=== PATIENT | female | born 2000 | race Caucasian/White ===

== ENCOUNTER → 2024-04-27 | Outpatient (CLI) | payer BC, SELFPAY ==
[2024-04-28 09:42] LABS: BVAG Candida Negative (Negative); Bacterial Vaginosis Markers Positive (Negative); Candida glabrata Negative (Negative); Candida krusei PCR Negative (Negative); Trichomonas Negative (Negative)
== END | disposition home or self-care (01) ==
LOC: SLDO 14:33
PROVIDERS: Referring Provider Specialist; Visit Provider Specialist
DX: B37.89 Other sites of candidiasis (principal); N76.0 Acute vaginitis; A59.01 Trichomonal vulvovaginitis
CPT/HCPCS: 81514

== ENCOUNTER → 2024-09-14 | Outpatient (CLI) | payer BC, SELFPAY ==
[2024-09-15 11:20] LABS: BVAG Candida Negative (Negative); Bacterial Vaginosis Markers Positive (Negative); Candida glabrata Negative (Negative); Candida krusei PCR Negative (Negative); Trichomonas Negative (Negative)
== END | disposition home or self-care (01) ==
LOC: SLDO 14:04
PROVIDERS: Referring Provider Physician Assistant Medical; Visit Provider Physician Assistant Medical
DX: B37.89 Other sites of candidiasis (principal); N76.0 Acute vaginitis; A59.01 Trichomonal vulvovaginitis
CPT/HCPCS: 81514

== ENCOUNTER → 2024-10-05 | Outpatient (CLI) | payer BC, SELFPAY ==
[2024-10-05 13:07] LABS: Misc Send Out* See Sep Rpt
[2024-10-05 13:36] LABS: Basophils # (Auto) 0.0 Thou/mm3 (0.0-0.2); Basophils % (Auto) 0 % (0-2.5); Eosinophils # (Auto) 0.2 Thou/mm3 (0.0-0.5); Eosinophils % (Auto) 2 % (0-10); Hematocrit 32.8 % (36.0-46.0); Hemoglobin 11.0 g/dL (12.0-16.0); Immature Granulocytes Auto 0.04 Thou/mm3 (0.00-0.00); Lymphocytes # (Auto) 2.3 Thou/mm3 (1.0-4.8); Lymphocytes % (Auto) 23 % (10-50); Mean Corpuscular HGB Conc 33.5 g/dl (31.0-37.0); Mean Corpuscular Hemoglobin 29.9 pg (25.0-35.0); Mean Corpuscular Volume 89 fL (80-100); Monocytes # (Auto) 0.5 Thou/mm3 (0.0-0.8); Monocytes % (Auto) 5 % (0-12); Neutrophils # (Auto) 7.1 Thou/mm3 (1.8-7.7); Neutrophils % (Auto) 70 % (37-80); Nucleated Red Blood Cell # 0.00 Thou/mm3 (0.00-0.00); Nucleated Red Blood Cell % 0 /100 WBC (0); Platelet Count 327 Thou/mm3 (140-440); RDW Standard Deviation 41.3 fL (36.4-46.3); Red Blood Count 3.68 Miln/mm3 (4.00-5.20); White Blood Count 10.1 Thou/mm3 (3.6-11.0)
[2024-10-05 13:47] LABS: Glucose Estimated Average 103 mg/dL (80-131); Hemoglobin A1C 5.2 % Hgb (4.8-6.0)
[2024-10-05 14:01] LABS: Creatinine (Component) 0.7 mg/dL (0.6-1.3); Glucose 92 mg/dL (74-106); eGFR > 60 See Note
[2024-10-05 14:18] LABS: Hepatitis B Surface Antigen Non Reactive (Non React); Rubella, IgG Antibody NonReact(Not Immune)
[2024-10-05 14:21] LABS: Syphilis Nonreactive (Nonreactive)
[2024-10-05 14:25] LABS: Beta HCG,Quantitative 54776 mIU/mL (<5.0)
[2024-10-05 15:09] LABS: HIV (1&2) Antibody Rapid Non-Reactive
[2024-10-09 19:49] LABS: HCV RNA, PCR <15 NOT DETECTED IU/mL
[2024-10-11 06:53] LABS: HCV RNA, PCR Log IU <1.18 NOT DETECTED Log IU/mL; HIV Ag/Ab, 4th Gen NON-REACTIVE
== END | disposition home or self-care (01) ==
LOC: COPL 12:39
PROVIDERS: Referring Provider Physician Assistant Medical; Visit Provider Physician Assistant Medical
DX: Z34.81 Encounter for supervision of other normal pregnancy, first trimester (principal)
CPT/HCPCS: 36415; 81220; 82565; 82947; 83036; 84702; 85025; 86703; 86762; 86780; 86850; 86900; 86901; 87340; 87389; 87522

== ENCOUNTER → 2024-10-05 | Outpatient (CLI) | payer BC, SELFPAY ==
[2024-10-05 14:58] LABS: Collection Type, Urine Clean Catch
[2024-10-05 16:06] LABS: Bacteria,Urine 2+; Bilirubin,Urine Negative (Negative); Blood,Urine Negative (Negative); Color,Urine Lt-Yellow (Lt Yel-Yel); Glucose, Urine Negative (Negative); Ketones,Urine Negative (Negative); Leukocyte Esterase,Urine Negative (Negative); Nitrite,Urine Negative (Negative); PH,Urine 7.5 (5.0-7.0); Protein,Urine Negative (Neg - Trace); RBC,Urine 1 /hpf (0-3); Specific Gravity,Urine 1.011 (1.001-1.035); Squamous Epithelial Cell,Urine 14 /hpf (0-5); Urobilinogen,Urine Negative mg/dL (0.0-1.0); WBC,Urine 1 /hpf (0-5)
[2024-10-05 16:07] LABS: Clarity,Urine Hazy (Clear/Hazy)
[2024-10-05 16:24] LABS: Amphetamine/Methamp Scrn,U Negative (Negative); Barbiturate Screen,Urine Negative (Negative); Benzodiazepines Screen,Urine Negative (Negative); Benzoylecgonine Screen, Ur Positive (Negative); Fentanyl Screen,Urine Negative (Negative); Opiate Screen,Urine Negative (Negative); THC Screen,Urine Negative (Negative)
== END | disposition home or self-care (01) ==
LOC: SLDO 14:49
PROVIDERS: Referring Provider Specialist; Visit Provider Specialist
DX: Z34.81 Encounter for supervision of other normal pregnancy, first trimester (principal)
CPT/HCPCS: 80307; 81001; 87086

== ENCOUNTER → 2024-10-06 | Outpatient (CLI) | payer BC, SELFPAY ==
[2024-10-06 11:32] LABS: Quantiferon-TB* See Sep Rpt
== END | disposition home or self-care (01) ==
LOC: COPL 11:14
PROVIDERS: PCP Internal Medicine; Referring Provider Physician Assistant Medical; Visit Provider Physician Assistant Medical
DX: Z34.81 Encounter for supervision of other normal pregnancy, first trimester (principal)
CPT/HCPCS: 86480

== ENCOUNTER → 2024-11-03 | Outpatient (CLI) | payer BC, SELFPAY ==
[2024-11-03 21:05] LABS: Amphetamine/Methamp Scrn,U Negative (Negative); Barbiturate Screen,Urine Negative (Negative); Benzodiazepines Screen,Urine Negative (Negative); Benzoylecgonine Screen, Ur Positive (Negative); Fentanyl Screen,Urine Negative (Negative); Opiate Screen,Urine Negative (Negative); THC Screen,Urine Negative (Negative)
== END | disposition home or self-care (01) ==
LOC: SLDO 15:53
PROVIDERS: Referring Provider Physician Assistant Medical; Visit Provider Physician Assistant Medical
DX: F14.10 Cocaine abuse, uncomplicated (principal)
CPT/HCPCS: 80307

== ENCOUNTER → 2024-11-12 | Outpatient (CLI) | payer BC, SELFPAY ==
[2024-11-12 17:50] LABS: Amphetamine/Methamp Scrn,U Negative (Negative); Barbiturate Screen,Urine Negative (Negative); Benzodiazepines Screen,Urine Negative (Negative); Benzoylecgonine Screen, Ur Positive (Negative); Fentanyl Screen,Urine Negative (Negative); Opiate Screen,Urine Negative (Negative); THC Screen,Urine Negative (Negative)
== END | disposition home or self-care (01) ==
LOC: SLDO 15:11
PROVIDERS: PCP Physician Assistant Medical; Referring Provider Specialist; Visit Provider Specialist
DX: Z34.81 Encounter for supervision of other normal pregnancy, first trimester (principal)
CPT/HCPCS: 80307

== ENCOUNTER 2025-03-11 15:03 | Outpatient (AMB) | payer BC, MEDICAID, SELFPAY ==
[2025-03-11 15:25] VITALS: BP 128/85; PULSE 84; RESP 18; TEMP 36.8; O2SAT 97; BMI 28.2
--- NOTE | 2025-03-11 15:25 | AMB.OBPNC ---
Vital Signs 03/11/25 15:25 Height 1.57 m Height Method Stated Weight 69.967 kg Weight Measurement Method Standing Scale BMI 28.2 BP 128/85 H Blood Pressure Source Automatic Cuff Blood Pressure Location Right Upper Arm Position Sitting Respiration 18 Pulse 84 Pulse Source Monitor Temp 98.2 F Temp Source Temporal Artery Scan Pulse Oximetry (%) 97 Oxygen Delivery Method Room Air Allergies/Home Meds Allergies & Medications Allergies No Known Allergies Allergy (Verified 03/11/25 15:26) Medication Reconciliation No Known Home Medications 07/13/21 [History Confirmed 03/11/25] Immunizations Immunizations Flu Vaccine in the Last 12 Months: No Flu Vaccine Exclusion Criteria: No Exclusion Criteria
--- NOTE | 2025-03-11 15:27 | OBCLNT_ITS ---
Vital Signs 03/11/25 15:25 03/11/25 15:30 Height 1.57 m Height Method Stated Weight 69.967 kg Weight Measurement Method Standing Scale BMI 28.2 BP 128/85 H 128/85 H Blood Pressure Source Automatic Cuff Blood Pressure Location Right Upper Arm Position Sitting Respiration 18 18 Pulse 84 84 Pulse Source Monitor Temp 98.2 F 98.2 F Temp Source Temporal Artery Scan Pulse Oximetry (%) 97 97 Oxygen Delivery Method Room Air Allergies/Home Meds Allergies & Medications Allergies No Known Allergies Allergy (Verified 03/11/25 15:26) Medication Reconciliation No Known Home Medications 07/13/21 [History Confirmed 03/11/25] Intake Visit Data Collection New Patient or Established: Established Patient (seen at [facility] within 3 years) Reason for Visit:: OB TRANSFER Seen by Clinical Staff ONLY (RN/MA): No Renewable Energy Project Manager Required: No Do You Feel Safe at Home: Yes Authorities Contacted: N/A PCP or OBGYN visit in last 3 months: No Hx Now: Yes Are you currently on any form of Control: No Last menstrual period: 05/29/24 Pain Present Currently: No Pain Scale Used: Young-Bundy/Numerical Pain scale:: 0 Smoking Status Smoking Status: Never smoker Immunizations Flu Vaccine in the Last 12 Months: No Flu Vaccine Exclusion Criteria: No Exclusion Criteria and Already Received Questionnaires Covid-19 Vaccine Questionnaire Has patient been vacinated for Covid-19 Have you been vacinated for Covid-19: No PHQ-9 PHQ-2 Over the last 2 weeks, how often have you been bothered by any of the following problems? 1. Little interest or pleasure in doing things: not at all 2. Feeling down, depressed, or hopeless: not at all Total score: 0 PHQ-9 3. Trouble falling or staying asleep, or sleeping too much: Not at all 4. Feeling tired or having little energy: Not at all 5. Poor appetite or overeating: Not at all 6. Feeling bad about yourself - or that you are a failure or have let yourself or your family down: Not at all 7. Trouble concentrating on things, such as reading the newspaper or watching television: Not at all 8. Moving or speaking so slowly that other people could have noticed? - Or the opposite - being so fidgety or restless that you have been moving around a lot more than usual: not at all 9. Thoughts that you would be better off or of hurting yourself in some way: Not at all Total score: 0 If you checked off any problems, how difficult have these problems made it for you to do your work, take care of things at home, or get along with other people?: not difficult at all Source: Developed by Drs. Frankie Ramirez, Angelica Love, Chris Palomino and colleagues, with an educational cristino from [employer]. Depression screen completed yes Social History Living Situation History Marital Status: Single Lives With: Family Housing: House Tobacco History Smoking Status: Never smoker Second Hand Smoke Exposure: No Alcohol History Alcohol Intake: Never Domestic Abuse History Do You Feel Safe at Home: Yes History of Present Illness HPI Narrative 24-year-old 1 para 0 for OBI. Patient is a transfer of care from Dr Anderson's office. Limited records. Patient reports last period May 29, 2024. This would give an EDC of March 05, 2025. Patient's first ultrasound was September 22, 2024. She measured 13 weeks 5 and this changed to EDC to March 25, 2025. Patient's anatomy scan showed normal growth and no abnormalities. Confirm dates. Patient had her gallbladder removed and she does not remember when. She has a history of positive cocaine use. Her last use she reports was in September. Patient also has a history of using marijuana. Patient reports that a month ago she received a letter from Dr Anderson excusing her from his care because of a positive drug screen. And patient denies any existence of chronic illness. Patient is here with her mother today. She reports movement. Denies leaking, bleeding, contractions. She has a history of abnormal Pap that was ASCUS with HPV negative. And she needs a repeat Pap in April. Patient is O+, antibody screen negative, RPR was nonreactive, rubella nonimmune, GC and chlamydia were not recorded in the chart. Hepatitis B was negative. Her HIV was negative. Hep C was also negative. She had a A1c of 5.2 and random glucose 103 and GTT was not done. Cystic fibrosis screen was negative. Patient declined NIPT and AFP. She states she declined both of those because she thought that those tests were done by amniocentesis. Both patient and mother are happy about the [employer]: Past Medical History Past Medical History: No Hx Neurological Disorders, No Hx Cardiac Disorders, No Hx Blood Disorders, No Hx Renal Disease, No Hx Diabetes Mellitus Type 1 and No Hx Diabetes Mellitus Type 2 OB Initial Visit OB Flowsheet OB Flowsheet Initial Weight: Not Recorded Date -?-?-?-?-?-?-?-?-?-?-?-?- EGA Weight BP Alb Glu CTX Pres Fundal ht FHR Mov Dilation Station Effacement Hx Notes Visit Note 03/11/25 -?-?-?-?-?-?-?-?-?-?-?-?- 38w 0d 69.967 kg 128/85 128/85 absent cephalic 34 145 active 24-year-old 1 para 0 for OBI. Transfer from Dr Anderson with partial records. Patient reports that she has not had any problems with the . Reports good movement. Denies leaking, bleeding, contractions. She had her first ultrasound at 13 weeks in September. And this gave EDC of March 25, 2025. She has irregular menses and unsure dates. Patient was terminated from Dr Anderson's care because of a positive drug screen for weed and cocaine OBI today. Patient sent to labor and delivery for complete OB and NST BPP for measuring size less than dates. I did A1c they are at [facility] and also sent urine for GC and chlamydia. GBS was done today. Menstrual History Menstrual reliability: unknown Flow: heavy Menstrual regularity: irregular Monthly: No Age at menarche: 13 On control pills at conception: Yes OB History : 2 Hx Total # of Abortions (Spontaneous & Elective): 1 Infection History & Risk Evaluation History of STDs: none Patient or partner has history of Genital Herpes: No Genetic Screening & History Genetic Screening/Teratology Counseling - Includes patient, baby's father, or anyone in either family with: 1. Patient's age 35 years or older as of estimated date of delivery: No 2. Thalassemia (Hong Konger, Sami, Mediterranean, or Background); MCV less than 80: No 3. Neural Tube Defect (Meningomyelocele, Spina Bifida, or Anencephaly): No 4. Congenital Heart Defect: No 5. Down Syndrome: No 6. Dick-Sachs (Ashkenazi Mu-Ism, Cajun, Northern Irish Ethiopian): No 7. [place] Disease (Ashkenazi Mu-Ism): No 8. Familial Dysautonomia (Ashkenazi Mu-Ism): No 9. Sickle Cell Disease or Trait (): No 10. Hemophilia or other blood disorders: No 11. Muscular Dystrophy: No 12. Cystic Fibrosis: No 13. Coleman's Chorea: No 14. Mental Retardation/Autism: No 15. Other inherited genetic or chromosomal disorder: No 16. Maternal Metabolic Disorder (EG,TYPE 1 Diabetes, PKU): No 17. Patient or baby's father had a child with defects not listed above: No 18. Recurrent loss or a stillbirth: No 19. Medications (including supplements, vitamins, herbs or otc drugs)/illicit/recreational drugs/alcohol since last menstrual period: No 20. Any other: No Infection History Other (see comments) Source: [employer] Review of Systems Review of Systems Systems Reviewed: All systems reviewed, normal except as documented Exam General Limitations: no limitations General Appearance: alert, in no apparent distress, comfortable, cooperative, healthy appearing, well developed and well groomed ENT ENT exam: Present normal exam, normal oropharynx and mucous membranes moist Neck Neck exam: Present normal inspection, full ROM and trachea midline Chest Chest inspection: Present normal inspection and symmetric chest wall rise Resp Respiratory exam: Present normal lung sounds bilaterally Card Cardiovascular exam: Present regular rate, normal rhythm and normal heart sounds Abdominal Abdominal exam: Present soft and normal bowel sounds Psych Psychiatric exam: Present normal affect and normal mood Office Procedures OBC Clinic LOC & Office Proc's Nursing/Assessment Patient Status: Established Patient OB Clinic Nursing Assessment: Medication Reconciliation, Update PMH in EMR and Vital Signs OB Clinic Coordination of Care: Complex Care and Chronic Disease 1-5, Education Complex Pt/Fam, Consent,records obtained, informed consent, Lab and Imaging orders, Results/Orders obtained and Staff clarify orders Special Needs: Heart tones Established Patient Charge Established Patient Point Assignment: 140 Established Patient Point Charge: EP Level 4 (120-155) Assessment & Plan Diagnosis / Problem List (1) Encounter for supervision of high risk in third trimester, antepartum: Status: Acute Plan Patient sent to labor and delivery for complete OB sono and NST BPP. I also did hemoglobin A1c and GC and chlamydia. Discussed labor precautions. Kick count twice a day. GBS was done today. Return in a week recheck Additional Plan Follow Up: 1 Week (obc)
[2025-03-11 15:30] VITALS: BP 128/85; PULSE 84; RESP 18; TEMP 36.8; O2SAT 97
== END 2025-03-11 16:06 | disposition home or self-care (01) ==
LOC: HODSOBC 15:03
PROVIDERS: PCP Physician Assistant Medical; Referring Provider Physician Assistant Medical; Supervising Provider Advanced Practice Midwife; Visit Provider Advanced Practice Midwife
DX: O09.93 Supervision of high risk pregnancy, unspecified, third trimester (principal); Z3A.38 38 weeks gestation of pregnancy; Z36.85 Encounter for antenatal screening for Streptococcus B
CPT/HCPCS: 99214; G0463

== ENCOUNTER 2025-03-13 09:32 | Inpatient (IN) | payer BC, MEDICAID, SELFPAY ==
[2025-03-12] VITALS (36 sets, daily range): BP systolic 113–135; BP diastolic 73–93; PULSE 70–103; RESP 15–100; TEMP 36.7–37.1; O2SAT 91–100; BMI 27.4; BMI 30.8
--- NOTE | 2025-03-12 14:51 | XR_ITS ---
Examination: Complete OB ultrasound greater than 14 weeks Date and time of exam: March 12, 2025, 1554 hours INDICATIONS: Unknown size and dates, Limited care Findings: Viable intrauterine single fetus with single amniotic sac presentation cephalic Cardiac motion 132 bpm Placenta posterior grade 2 Umbilical cord insertion seen Amniotic fluid index 9.1 cm Cervix 3.1 cm Ovaries obscured by bowel gas. Composite estimated gestational age based on BPD, head circumference, abdominal circumference, femur length is 33 weeks 2 days Estimated weight 2157 g. Survey of intracranial anatomy, spinal anatomy, abdominal anatomy, four-chamber heart performed with no abnormalities identified. Impression: Viable intrauterine gestation cephalic presentation.
--- NOTE | 2025-03-12 14:51 | XR_ITS ---
Examination: Biophysical profile, ultrasound Date and time of exam: March 12, 2025, 1546 hours INDICATIONS: Limited care Technique: Multiple transabdominal sonographic images of the pelvis abdomen obtained. Attention is directed to the breathing movement, gross body movement, amniotic fluid volume and tone. Findings: Amniotic fluid index 8.1 cm Total biophysical profile is 8 of 8. breathing movement is 2. Gross body movement is 2. tone is 2. Qualitative amniotic fluid volume is 2 Impression: Biophysical profile is 8 of 8.
[2025-03-12 18:59] LABS: Amphetamine/Metham Scrn,Ur OB Negative (Negative); Benzoylecgonine Screen, Ur OB Positive (Negative); Benzoylecoginine U Confirm* See Sep Rpt; Opiate Screen,Urine OB Negative (Negative); THC Screen,Urine OB Negative (Negative)
[2025-03-12 19:03] LABS: Basophils # (Auto) 0.0 Thou/mm3 (0.0-0.2); Basophils % (Auto) 0 % (0-2.5); Eosinophils # (Auto) 0.1 Thou/mm3 (0.0-0.5); Eosinophils % (Auto) 1 % (0-10); Hematocrit 31.9 % (36.0-46.0); Hemoglobin 10.4 g/dL (12.0-16.0); Immature Granulocytes Auto 0.04 Thou/mm3 (0.00-0.00); Lymphocytes # (Auto) 1.8 Thou/mm3 (1.0-4.8); Lymphocytes % (Auto) 18 % (10-50); Mean Corpuscular HGB Conc 32.6 g/dl (31.0-37.0); Mean Corpuscular Hemoglobin 30.5 pg (25.0-35.0); Mean Corpuscular Volume 94 fL (80-100); Monocytes # (Auto) 0.5 Thou/mm3 (0.0-0.8); Monocytes % (Auto) 6 % (0-12); Neutrophils # (Auto) 7.5 Thou/mm3 (1.8-7.7); Neutrophils % (Auto) 75 % (37-80); Nucleated Red Blood Cell # 0.00 Thou/mm3 (0.00-0.00); Nucleated Red Blood Cell % 0 /100 WBC (0); Platelet Count 288 Thou/mm3 (140-440); RDW Standard Deviation 45.5 fL (36.4-46.3); Red Blood Count 3.41 Miln/mm3 (4.00-5.20); White Blood Count 9.9 Thou/mm3 (3.6-11.0)
[2025-03-12] MEDS: RINGERS LACTATED 1000 ML 1,000 ML 100 ML IV (19:35)
[2025-03-12 19:40] LABS: Syphilis Nonreactive (Nonreactive)
--- NOTE | 2025-03-12 23:17 | ESHP_ITS ---
Documentation for date of: 03/12/25 OB Labor/Induct. HPI History of Present Illness Chief complaint: Induction of labor for suspected SGA infant : 2 Para: 0 Term pregnancies: 0 pregnancies: 0 Living children: 0 History of Abortions: Spontaneous and Elective: 1 History of Vaginal deliveries: 0 History of sections: No History of : No Date of last menstrual period: 05/29/24 ROBERT: 03/25/25 Gestational Age (weeks): 38 Gestational Age (days): 1 Gestational age based on last menstrual period: 41 Indication for induction: other (Suspected SGA baby. Baby is measuring) History of present illness: Patient is a 24-year-old -0-1-0 with at 38 and 1 sevenths weeks all care started with Dr Anderson transferred to Violetta Hernandez at [facility] clinic with a lagging fundal height. The patient had an ultrasound today revealing a vertex presentation and baby measuring 2157 g which corresponds to 4 pounds 7 ounces and approximately 33 weeks gestation .As the patient is 38 weeks , she was admitted for induction of labor for suspected SGA. The MANJIT was normal. Of note the patient has a history of multiple drug screens positive cocaine this . Her UDS is positive on admission for cocaine. labs are up-to-date. Patient declined AFP and NIPT testing. History of Present Dating criteria: LMP confirmed by 1st trimester US Adequate Care: Yes Ultrasounds: normal mid trimester US Obstetrical complications: other (Small for gestational age infant) Medical complications: other (Exposure to cocaine use this ) Labs Maternal Blood Type: O Pos Labs: Negative: RPR, Hepatitis B, Rubella Titre and HIV and Unknown: Chlamydia, Gonorrhea, Herpes Type 1, Herpes Type 2, Group Beta Strep (Unknown group B strep. Will treat with clindamycin as patient is allergic to penicillin.) and Covid-19 Past Medical History Surgical History SURGICAL: Negative Section Past Medical History Comments PMH COMMENT: Patient denies significant past medical history. She has had a gallbladder removal. Meds Home Medications and Allergies Home Medications ?Medication ?Instructions ?Recorded ?Confirmed ?Type No Known Home Medications 07/13/2102/15 History Allergies Allergy/AdvReac Type Severity Reaction Status Date / Time bee venom protein (honey bee) Allergy Hives Verified 03/12/25 18:14 Penicillins Allergy Hives Verified 03/12/25 18:14 OB Exam Physical Exam Vital signs: Temp Pulse Resp BP Pulse Ox O2 Del Method 98.1 F 70 15 120/85 H 97 Room Air 03/12/25 21:47 03/12/25 23:14 03/12/25 21:47 03/12/25 23:14 03/12/25 18:23 03/12/25 21:47 Routine Abdominal Exam Abdominal: Present soft Detailed Labor and Delivery Exam Dilation (cm): 2 Effacement (%): 80 Cervix position: mid station: -2 Consistency: medium Presentation: Vertex Membranes: intact monitor accelerations: 15x15 monitor decelerations: None buttermaker helper variability: Moderate (11-25) Contraction frequency (min): Irregular on presentation Tachysystole: No Contraction intensity: Mild OB Results Labs 03/12/25 17:55 Labs: Short CBC 03/12/25 Range/Units 17:55 WBC 9.9 (3.6-11.0) Thou/mm3 Hgb 10.4 L (12.0-16.0) g/dL Hct 31.9 L (36.0-46.0) % Plt Count 288 (140-440) Thou/mm3 OB Assessment & Plan Assessment and Plan (1) Supervision of high risk in third trimester: Status: Acute (2) SGA (small for gestational age), , affecting care of mother, antepartum: Status: Acute Assessment and plan: Admit patient for induction of labor for suspected SGA. (3) Cocaine abuse affecting in third trimester: Status: Acute Assessment and plan: Social work consult Additional Plan Induction method: per misoprostol protocol Plan: induction, anticipate NVD and GBS prophylaxis tx (2) SGA (small for gestational age), , affecting care of mother, antepartum Qualifiers: Fetus number: single or unspecified fetus Qualified Code(s): O36.5990 - Maternal care for other known or suspected poor growth, unspecified trimester, not applicable or unspecified
[2025-03-13] VITALS (148 sets, daily range): BP systolic 96–186; BP diastolic 57–101; PULSE 64–119; RESP 15–20; TEMP 36.6–37.4; O2SAT 68–100
[2025-03-13] MEDS: RINGERS LACTATED 1000 ML 1,000 ML 100 ML IV ×2 (01:56→02:51)
--- NOTE | 2025-03-13 06:04 | PD.LDPN ---
Documentation for date of: 03/13/25 OB Labor Progress Note Pain Control Pain control: epidural Pelvic Exam Dilation (cm): 4-5 Effacement (%): 80 station: -2 Amniotic membrane status: Ruptured (AROM 0546 clear fluid) Contractions Monitor mode: Internal Contraction frequency: 4 min Contraction intensity: Moderate Status status: Category l Assessment and Plan Assessment: induction ongoing Plan OB labor note: begin Pitocin augmentation History of Present Illness HPI Patient is a 24-year-old -0-1-0 with at 38 and 1 sevenths weeks all care started with Dr Anderson transferred to Violetta Hernandez at [facility] OB clinic with a lagging fundal height. The patient had an ultrasound today revealing a vertex presentation and baby measuring 2157 g which corresponds to 4 pounds 7 ounces and approximately 33 weeks gestation .As the patient is 38 weeks , she was admitted for induction of labor for suspected SGA. The MANJIT was normal. Of note the patient has a history of multiple drug screens positive cocaine this . Her UDS is positive on admission for cocaine. labs are up-to-date. Patient declined AFP and NIPT testing. Overnight the patient had epidural placed. Her UCs spaced. At 0546, I examined the patient and AROMed her. Clear fluid. IUPC placed. Cx 4-5/90/-2/mid Will start pitocin augmentation at this time.
[2025-03-13 08:26] LABS: Chlamydia trachomatis PCR Negative (Not Detect); Neisseria Gonorrhoeae DNA PCR Negative (Not Detect); Trichomonas Negative (Negative)
[2025-03-13] MEDS: MINERAL OIL 30 ML UDC TOP (09:46)
[2025-03-13] MEDS: OXYTOCIN in NS 20 units 20 UNIT/1,000 ML BAG 125 UNIT IV (09:46)
[2025-03-13] MEDS: BENZO/LANO/ALOE (Dermoplast) 60 GM CAN 1 SPRAY TOP (09:47)
[2025-03-13] MEDS: IBUPROFEN TAB 400 MG TABLET 800 MG PO (09:47)
--- NOTE | 2025-03-13 09:57 | OBDSUM_ITS ---
Data (Madrigal) Data Hx Section: No Maternal Blood Type: O Pos Labs: Negative: RPR, Hepatitis B, HIV, Chlamydia and Gonorrhea and Unknown: Group Beta Strep : 2 Term: 0 : 0 Livin Abortions: Spontaneous & Theraputic: 1 Delivery Data (Madrigal) Labor Data Initiation of labor: Augmentation Induction/Augmentation Agent: Artificial ROM ROM date: 03/13/25 ROM time: 05:46 Amniotic membrane rupture type: Artificial Amniotic fluid description: Clear Delivery Data EDC: 03/25/25 Onset of labor date: 03/13/25 Onset of labor time: 03:00 Complete dilation date: 03/13/25 Complete dilation time: 08:45 Ripley delivery date: 03/13/25 Ripley delivery time: 09:24 Gestational age (weeks): 38 Gestational age (days): 2 Placenta delivery date: 03/13/25 Placenta delivery time: 09:27 Stage 1 total time: Labor - Stage 1 Duration 5 hours and 45 minutes Delivered by: Nisha Oneill Delivery nurse: MIZRA Choorn nurse: MIRZA Barker Bus Transportation Manager at delivery: Yes (Donsar) Support person(s) at delivery: Mother, and FOB Other staff at delivery: Ruthie, motorboat mechanic inboard Stephanie, RN Sayar, DIESEL POWER SHOVEL OPERATOR Delivery Method Delivery method: Normal Vaginal Delivery Presentation: Vertex Anesthesia Type Anesthesia Type: Epidural Placenta Placenta delivery description: Spontaneous Cord blood sent to lab: Yes cord blood collection: Cord Blood Type Episiotomy Episiotomy description: None EBL Estimated blood loss (ml): 160 Umbilical Cord cord description: 3 Vessels Ripley Data (Madrigal) Ripley Data order: 1 Ripley's gender: Male Identification band number: [id number] weight (gms): 2840 g Weight (pounds): 6 lbs and 4.2 ozs length: 48 cm 1 minute: 9 5 minutes: 9
[2025-03-13 11:51] LABS: Basophils # (Auto) 0.0 Thou/mm3 (0.0-0.2); Basophils % (Auto) 0 % (0-2.5); Eosinophils # (Auto) 0.0 Thou/mm3 (0.0-0.5); Eosinophils % (Auto) 0 % (0-10); Hematocrit 26.9 % (36.0-46.0); Immature Granulocytes Auto 0.12 Thou/mm3 (0.00-0.00); Lymphocytes # (Auto) 1.5 Thou/mm3 (1.0-4.8); Lymphocytes % (Auto) 8 % (10-50); Mean Corpuscular HGB Conc 32.7 g/dl (31.0-37.0); Mean Corpuscular Hemoglobin 31.0 pg (25.0-35.0); Mean Corpuscular Volume 95 fL (80-100); Monocytes # (Auto) 1.1 Thou/mm3 (0.0-0.8); Monocytes % (Auto) 6 % (0-12); Neutrophils # (Auto) 15.1 Thou/mm3 (1.8-7.7); Neutrophils % (Auto) 84 % (37-80); Nucleated Red Blood Cell # 0.00 Thou/mm3 (0.00-0.00); Nucleated Red Blood Cell % 0 /100 WBC (0); Platelet Count 192 Thou/mm3 (140-440); RDW Standard Deviation 46.0 fL (36.4-46.3); Red Blood Count 2.84 Miln/mm3 (4.00-5.20); White Blood Count 17.8 Thou/mm3 (3.6-11.0)
[2025-03-13 12:33] LABS: Hemoglobin 8.8 g/dL (12.0-16.0)
[2025-03-13] MEDS: ACETAMINOPHEN 325 MG TABLET 650 MG PO (12:56)
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
[2025-03-13] MEDS: DIPHTH,PERTUSS(ACELL),TET VAC 0.5 ML SYR- ADULT IMi (17:48)
[2025-03-14 00:08] VITALS: BP 121/84; PULSE 88; RESP 18; TEMP 36.7; O2SAT 98
[2025-03-14 04:06] VITALS: BP 121/75; PULSE 88; RESP 15; TEMP 36.8; O2SAT 97
[2025-03-14 06:03] LABS: Basophils # (Auto) 0.0 Thou/mm3 (0.0-0.2); Basophils % (Auto) 0 % (0-2.5); Eosinophils # (Auto) 0.1 Thou/mm3 (0.0-0.5); Eosinophils % (Auto) 1 % (0-10); Hematocrit 27.2 % (36.0-46.0); Hemoglobin 8.9 g/dL (12.0-16.0); Immature Granulocytes Auto 0.06 Thou/mm3 (0.00-0.00); Lymphocytes # (Auto) 2.4 Thou/mm3 (1.0-4.8); Lymphocytes % (Auto) 19 % (10-50); Mean Corpuscular HGB Conc 32.7 g/dl (31.0-37.0); Mean Corpuscular Hemoglobin 30.8 pg (25.0-35.0); Mean Corpuscular Volume 94 fL (80-100); Monocytes # (Auto) 0.9 Thou/mm3 (0.0-0.8); Monocytes % (Auto) 7 % (0-12); Neutrophils # (Auto) 9.2 Thou/mm3 (1.8-7.7); Neutrophils % (Auto) 72 % (37-80); Nucleated Red Blood Cell # 0.00 Thou/mm3 (0.00-0.00); Nucleated Red Blood Cell % 0 /100 WBC (0); Platelet Count 188 Thou/mm3 (140-440); RDW Standard Deviation 45.5 fL (36.4-46.3); Red Blood Count 2.89 Miln/mm3 (4.00-5.20); White Blood Count 12.7 Thou/mm3 (3.6-11.0)
[2025-03-14] MEDS: IBUPROFEN TAB 400 MG TABLET 800 MG PO ×2 (07:11→20:11)
[2025-03-14 07:17] VITALS: BP 124/83; PULSE 65; RESP 16; TEMP 36.8; O2SAT 97
--- NOTE | 2025-03-14 09:14 | PD.LDPPPRG ---
Subjective Subjective Interval history: The patient is a 24-year-old -0-1-1 day #1 status post vaginal delivery 03/13/[address] Oneill at approximately 9:30 in the morning. This morning the patient is resting comfortably in bed. She denies heavy bleeding. Her pain is controlled with p.o. pain medications. She is unsure whether she is going to breast or bottle feed. Of note patient's drug screen was positive for cocaine. Her baby's drug screen was also positive for cocaine. We are awaiting a social work consult. Patient is ambulating voiding tolerating a general diet. She stated she had only a minor laceration repair at delivery. Exam Vital Signs Temp Pulse Resp BP Pulse Ox O2 Del Method 98.3 F 65 16 124/83 97 Room Air 03/14/25 07:17 03/14/25 07:17 03/14/25 07:17 03/14/25 07:17 03/14/25 07:17 03/14/25 07:17 Narrative Exam Patient is alert and orient x 3 no apparent distress Fundus is firm nontender at umbilicus Extremities show no significant edema or erythema. Objective Labs 03/14/25 05:46 Labs: Laboratory Results - last 24 hr 03/13/25 03/14/25 11:21 05:46 WBC 17.8 H D 12.7 H D RBC 2.84 L 2.89 L Hgb 8.8 L 8.9 L Hct 26.9 L 27.2 L MCV 95 94 MCH 31.0 30.8 MCHC 32.7 32.7 RDW Std Deviation 46.0 45.5 Plt Count 192 D 188 Neut % (Auto) 84 H 72 Lymph % (Auto) 8 L 19 [place] % (Auto) 6 7 Eos % (Auto) 0 1 Baso % (Auto) 0 0 Neut # (Auto) 15.1 H 9.2 H Lymph # (Auto) 1.5 2.4 [place] # (Auto) 1.1 H 0.9 H Eos # (Auto) 0.0 0.1 Baso # (Auto) 0.0 0.0 Immature Gran # (Auto) 0.12 H 0.06 H Absolute Nucleated RBC 0.00 0.00 Immature Gran % 1 H 1 H Nucleated RBC % 0 0 Assessment & Plan Problem List (1) SGA (small for gestational age), , affecting care of mother, antepartum: Status: Acute (2) Cocaine abuse affecting in third trimester: Problem details: Patient's drug screen was positive for cocaine as was the 's. Awaiting social work consult and recommendations. Status: Acute (3) care following vaginal delivery: Problem details: Patient is doing well . Her predelivery hemoglobin postdelivery hemoglobin are stable. She is afebrile and her other vital signs are stable. Status: Acute Time Spent With Patient Time: Total time spent is greater than 50% in coordination of care (as documented) at patient's floor/unit and/or counseling patient: Time with patient: less than 15 minutes
--- NOTE | 2025-03-14 11:12 | PC.SS ---
SMELLER informed by bedside nurse that CWS staff at bedside with patient. Bedside nurse to notify SMELLER once CWS determines outcome of response.
[2025-03-14 12:04] VITALS: BP 130/80; PULSE 70; RESP 18; TEMP 36.7; O2SAT 97
--- NOTE | 2025-03-14 13:18 | PC.SS ---
Addendum entered and electronically signed by WHIT Ribeiro 03/15/25 12:18: Paternal grandmother, Lucy Woody; present for discharge of infant. GENERATOR OPERATOR updated S staff, Sandy Jesus; of impending discharge. Bedside nurse providing discharge instructions. Addendum entered and electronically signed by WHIT Ribeiro 03/15/25 11:08: GENERATOR OPERATOR updated S social insurance administrator Sandy Jesus , that 's discharge orders are in. Bedside nurse to inform patient to contact paternal grandparent's to be present at the time of discharge. Addendum entered and electronically signed by WHIT Ribeiro 03/15/25 08:48: GENERATOR OPERATOR updated [facility] social insurance administrator Sandy Jesus [phone], that patient's discharge orders were placed this morning and that 's discharge orders are pending. Bedside nurse to contact GENERATOR OPERATOR once 's discharge orders are in. GENERATOR OPERATOR will provide update to CWS once orders are present. Original Note: GENERATOR OPERATOR met with [facility] social insurance administrator, Sandy Jesus . GENERATOR OPERATOR informed that to be discharged to parents with safety plan. GENERATOR OPERATOR notified that infant to be released to parents in presence of either paternal grandparent, Lucy Woody or Maikol Woody. S reiterated that cannot be released to parents unless either paternal grandparent present. GENERATOR OPERATOR updated bedside nurse and confirmed discharge plan with the patient.
[2025-03-14] MEDS: ACETAMINOPHEN 325 MG TABLET 650 MG PO (16:41)
[2025-03-14 20:11] VITALS: BP 126/85; PULSE 75; RESP 16; TEMP 36.8; O2SAT 96
[2025-03-15 03:45] VITALS: BP 123/82; PULSE 69; RESP 17; TEMP 36.7; O2SAT 97
[2025-03-15 08:00] VITALS: BP 120/78; PULSE 78; RESP 17; TEMP 36.5; O2SAT 97
--- NOTE | 2025-03-15 08:22 | PD.LDPPPRG ---
Subjective Subjective Interval history: Delivery type: Patient doing well this morning. No acute complaints. Ambulating, tolerating p.o., and voiding without difficulty. HTN/Pre-E screen negative: No CP, SOB, VAZQUEZ, visual changes, RUQ pain. : Yes Lochia: diminishing Bowel: Flatus + / BM + UOP: Voiding freely Exam Vital Signs Temp Pulse Resp BP Pulse Ox O2 Del Method 98.1 F 69 17 123/82 97 Room Air 03/15/25 03:45 03/15/25 03:45 03/15/25 03:45 03/15/25 03:45 03/15/25 03:45 03/15/25 03:45 Constitutional Constitutional: no acute distress Routine HEENT Exam Head: Present normocephalic and atraumatic Eye: Present EOMI and PERRL ENT: Present mucous membranes moist Routine Neck Exam Neck: Present supple and trachea midline Routine Respiratory Exam Respiratory: Present chest non-tender, lungs clear, normal breath sounds and no resp distress Routine Cardiovascular Exam Cardiovascular: Present RRR Routine Abdominal Exam Abdominal: Present soft and normoactive bowel sounds Routine Extremities Exam Extremities: Present full ROM Routine Skin Exam Skin: Present intact, dry and warm Routine Neurological Exam Neurological: Present alert, oriented X3 and CN II-XII intact Routine Psychiatric Exam Psychiatric: Present normal affect and normal thought process Objective Labs 03/14/25 05:46 Assessment & Plan Problem List (1) SGA (small for gestational age), , affecting care of mother, antepartum: Status: Acute (2) Cocaine abuse affecting in third trimester: Status: Acute (3) care following vaginal delivery: Status: Acute (4) Vaginal delivery: Status: Acute Assessment and plan: PPD/POD#2 1. Continue routine care 2. Transition to PO meds. 3. Encourage to ambulate/ breast-feed 4. Anticipate discharge home today after social work clearance Time Spent With Patient Time: Total time spent is greater than 50% in coordination of care (as documented) at patient's floor/unit and/or counseling patient:
--- NOTE | 2025-03-15 08:23 | ESDS_ITS ---
DS: Providers Provider Date of admission: 03/13/25 09:32 Primary care physician: Physician No Primary/Family Admitting Provider: Tom Crowder MD Attending Provider on Admission: Kaz Montoya MD Consults: 03/13/25 10:00 Referral Routine Comment: Attending Provider on DC: Kaz Montoya MD Discharging Provider: Kaz Montoya MD DS: Diagnosis Discharge Diagnosis (1) Vaginal delivery: Status: Acute (2) care following vaginal delivery: Status: Acute (3) Cocaine abuse affecting in third trimester: Status: Acute (4) SGA (small for gestational age), , affecting care of mother, antepartum: Status: Acute Problem List Completed Was Problem List Reviewed/Reconciled?: Yes Summary/Hosp Course Brief History: Patient is a 24-year-old -0-1-0 with at 38 and 1 sevenths weeks all care started with Dr Anderson transferred to Violetta Hernandez at [facility] with a lagging fundal height. The patient had an ultrasound today revealing a vertex presentation and baby measuring 2157 g which corresponds to 4 pounds 7 ounces and approximately 33 weeks gestation .As the patient is 38 weeks , she was admitted for induction of labor for suspected SGA. The MANJIT was normal. Of note the patient has a history of multiple drug screens positive cocaine this . Her UDS is positive on admission for cocaine. labs are up-to-date. Patient declined AFP and NIPT testing. Overnight the patient had epidural placed. Her UCs spaced. At 0546, I examined the patient and AROMed her. Clear fluid. IUPC placed. Cx 4-5/90/-2/mid Will start pitocin augmentation at this time. Peripartum Data Delivery Method: Normal Vaginal Delivery Episiotomy Description: None Time Spent with Patient Time attestation: Total time spent providing and/or coordinating discharge services: Exam Vital Signs Temp Pulse Resp BP Pulse Ox O2 Del Method 98.1 F 69 17 123/82 97 Room Air 03/15/25 03:45 03/15/25 03:45 03/15/25 03:45 03/15/25 03:45 03/15/25 03:45 03/15/25 03:45 Discharge Plan Plan Patient Disposition: HOME (Self Care) Patient condition on transfer: Stable Prescriptions/Referrals Prescriptions/Med Rec: New docusate sodium [Stool Softener] 100 mg capsule 100 mg PO QDAY 30 Days Qty: 30 0RF ibuprofen 600 mg tablet 600 mg PO Q6H MDD 4 PRN (Reason: fever or pain) 10 Days Qty: 40 0RF Referrals: Violetta Hernandez CNM [Certified Nurse Bicycle Designer, [employer]] No Primary/Family,Physician [Primary Care Provider] Patient/Caregiver Discharge Instructions Education Materials: After a Vaginal , After Delivery Concerns, Breast Care After , Incision Care After Vaginal , Nutrition While , Understanding Depression, : Caring for Yourself, Feel Healthy After Print Language: Azeri Stand Alone Forms: [employer] Info., Patient Portal Info Letter Discharge Order Discharge Orders: Discharge (Routine); Ordered 03/15/25 Ordered By: Kaz Montoya Planned Discharge Date 03/15/25 (4) SGA (small for gestational age), , affecting care of mother, antepartum Qualifiers: Fetus number: single or unspecified fetus Qualified Code(s): O36.5990 - Maternal care for other known or suspected poor growth, unspecified trimester, not applicable or unspecified
--- NOTE | 2025-03-15 08:34 | PC.NURSE ---
patient declined MMR at this time, not decided about contraception.
== END 2025-03-15 12:50 | disposition home or self-care (01) | DRG 806 ==
LOC: S4S1 09:32 → S4SX 09:32 → S4NX 13:08
PROVIDERS: Obstetrics & Gynecology; Admitting Provider Pediatrics; Referring Provider Obstetrics & Gynecology; Visit Provider Obstetrics & Gynecology
DX: O36.5930 Maternal care for other known or suspected poor fetal growth, third trimester, not applicable or unspecified (principal); O99.324 Drug use complicating childbirth; Z37.0 Single live birth; Z3A.38 38 weeks gestation of pregnancy; F14.10 Cocaine abuse, uncomplicated
CPT/HCPCS: 36415; 59025; 59409; 76805; 76819; 80307; 85025; 86780; 86850; 86900; 86901; 87491; 87591; 87661; 90715; 94762; J0736; J2590; J2795; J7120; A9270